=== PATIENT | female | born 1955 ===

== ENCOUNTER 2023-10-25 16:07 | Emergency (ER) | payer MEDICARE, BC ==
[2023-10-25] MEDS ORDERED: Sodium Chloride 0.9% 10 ML Syringe FLUSH PRN (17:05)
[2023-10-25 17:27] LABS: BASOPHILS PERCENT AUTO 0.2 % (0.0-1.0); EOSINOPHILS PERCENT AUTO 0.9 % (1.0-3.0); HEMATOCRIT 32.1 % (37.0-47.0); HEMOGLOBIN 11.2 g/dL (12.0-16.0); LYMPHOCYTES PERCENT AUTO 9.5 % (20.5-50.1); MEAN CORPUSCULAR HEMOGLOBIN 30.3 pg (27.0-34.0); MEAN CORPUSCULAR HGB CONC 34.9 g/dL (33.0-35.0); MEAN CORPUSCULAR VOLUME 86.8 fL (80-100); MONOCYTES PERCENT AUTO 8.6 % (2-8); NEUTROPHILS PERCENT AUTO 80.8 % (42.2-75.2); PLATELET COUNT,PLT 113 10^3/uL (150-450); WHITE BLOOD CELL COUNT,WBC 4.6 10^3/uL (5.0-10.0)
[2023-10-25 17:45] LABS: A/G RATIO 0.9; ALANINE AMINOTRANSFERASE,ALT 26 U/L (14-59); ALBUMIN 3.5 g/dL (3.4-5.0); ALKALINE PHOSPHATASE 73 U/L (46-116); ANION GAP 9.1 mEq/L (7-13); ASPARTATE AMNIOTRANSFERASE,AST 32 U/L (15-37); BILIRUBIN TOTAL 0.8 mg/dL (0.2-1.0); BLOOD UREA NITROGEN,BUN 14 mg/dL (7-18); BUN/CREATININE RATIO 12.2 (No establ ref range); C-REACTIVE PROTEIN 1.73 ng/dL (<=0.50); CALCIUM 9.8 mg/dL (8.5-10.1); CARBON DIOXIDE,CO2 29 mmol/L (21-32); CHLORIDE,CL 89 mmol/L (98-107); CREATININE 1.15 mg/dL (0.55-1.02); EST CRCL DRUG DOSING (CG) 38.73 mL/min; GLUCOSE RANDOM 367 mg/dL (70-99); MAGNESIUM 1.3 mg/dL (1.8-2.4); POTASSIUM,K 3.1 mmol/L (3.5-5.1); PROTEIN TOTAL,TP 7.2 g/dL (6.4-8.2); SODIUM,NA 124 mmol/L (136-145)
[2023-10-25 17:47] LABS: ESTIMATED GFR 52 mL/min (>=60)
[2023-10-25 17:48] LABS: LACTIC ACID 1.7 mmol/L (0.4-2.0)
[2023-10-25] MEDS: Ibuprofen 600 MG Tab PO ONE (17:53)
[2023-10-25 18:03] LABS: PROTHROMBIN TIME 10.7 SEC (9.0-12.0)
[2023-10-25] MEDS: Ondansetron 4 MG/2 ML SDV IVPUSH ONE (18:03)
[2023-10-25] MEDS: Magnesium Sulfate/Water 2 GM in Premix Bag 1 BAG IV ONE (18:05)
[2023-10-25] MEDS: Sodium Chloride 0.9% 1,000 ML IV ONE (18:08)
[2023-10-25 18:11] LABS: APPEARANCE,URINE CLEAR (CLEAR); BILIRUBIN,URINE NEGATIVE (NEGATIVE); COLOR,URINE YELLOW (YELLOW); GLUCOSE,URINE 500 (NEGATIVE); KETONES,URINE 15 (NEGATIVE); LEUKOCYTE ESTERASE,URINE NEGATIVE (NEGATIVE); NITRITE,URINE NEGATIVE (NEGATIVE); OCCULT BLOOD,URINE NEGATIVE (NEGATIVE); PH,URINE 5.5 (5.0-9.0); PROTEIN,URINE NEGATIVE (NEGATIVE); UROBILINOGEN,URINE 0.2 mg/dL (0.2-1.0)
[2023-10-25 18:15] LABS: PTT,PARTIAL THROMBOPLSTIN TIME 27.3 SEC (22.0-34.0)
[2023-10-25] MEDS: Potassium Chloride 10 MEQ Tab.ER PO ONE (18:50)
== END 2023-10-25 19:11 | disposition home or self-care (01) ==
LOC: DL.ED 16:07
DX: U07.1 COVID-19 (principal); N17.9 Acute kidney failure, unspecified; J06.9 Acute upper respiratory infection, unspecified; E87.6 Hypokalemia; E83.42 Hypomagnesemia
CPT/HCPCS: 36415; 71045; 80053; 81003; 83605; 83735; 84145; 85025; 85610; 85730; 86140; 87040; 87081; 87430; 87804; 96365; 96375; 99284; A9270; J2405; J3475; J7030; U0002